=== PATIENT | male | born 1935 | race Caucasian/White ===

== ENCOUNTER 2020-01-31 13:32 | Emergency (ER) | payer OTHER ==
[2020-01-31] MEDS ORDERED: Sodium Chloride 0.9% 10 ML Syringe FLUSH PRN (13:54)
[2020-01-31] MEDS ORDERED: Sodium Chloride 0.9% 2.5 ML Syringe FLUSH PRN (13:54)
[2020-01-31] MEDS ORDERED: Labetalol 100 MG/20 ML MDV IVPUSH ONE (14:02)
--- NOTE | 2020-01-31 14:07 | EDM.PDOC ---
ED HPI GENERAL MEDICAL PROBLEM - General Chief Complaint: Cardiovascular Problem Stated Complaint: blood pressure high Time Seen by Provider: 01/31/20 13:53 Source of Information: Reports: Patient History Limitations: Reports: No Limitations - History of Present Illness INITIAL COMMENTS - FREE TEXT/NARRATIVE: 84M PMHx HTN, hyperthyroidism, NIDDM2 presents for high BP. Patient notes that when getting his influenza vaccination earlier this week, he was found to have hypertension to 170s/100s which is quite high for him. He was instructed to monitor at home and [facility]. This morning, BP was noted to be 250/120 prompting him to seek medical attention. He notes a diffuse/dull POWERS for the last few days but denies other symptoms. No CP/SOB. No dark urine or reduced urination. No edema. No changes in vision. No one-sided weakness, confusion, or slurred speech. - Related Data Allergies Allergy/AdvReac Type Severity Reaction Status Date / Time No Known Allergies Allergy Verified 01/31/20 13:48 Home Meds: Home Meds Gabapentin [Neurontin] 600 mg PO DAILY 01/31/20 [History] Simvastatin 80 mg PO BEDTIME 01/31/20 [History] lisinopriL [Lisinopril] 0.5 tab PO BEDTIME 01/31/20 [History] metFORMIN HCl [Metformin HCl] 500 mg PO DAILY 01/31/20 [History] methIMAzole [Methimazole] 5 mg PO DAILY 01/31/20 [History] Past Medical History Cardiovascular History: Reports: High Cholesterol, Hypertension Endocrine/Metabolic History: Reports: Diabetes, Type II, Hyperthyroidism Social & Family History - Tobacco Use Smoking Status *Q: Never Smoker - Caffeine Use Caffeine Use: Reports: None - Recreational Drug Use Recreational Drug Use: No ED ROS GENERAL - Review of Systems Review Of Systems: Comprehensive ROS is negative, except as noted in HPI. ED EXAM, GENERAL - Physical Exam Exam: See Below Exam Limited By: No Limitations General Appearance: Alert, WD/WN, No Apparent Distress Eye Exam: Bilateral Eye: EOMI, PERRL Ears: Normal External Exam Nose: Normal Inspection Throat/Mouth: Normal Inspection, Normal Voice, No Airway Compromise Head: Atraumatic, Normocephalic Respiratory/Chest: No Respiratory Distress, Lungs Clear, Normal Breath Sounds, No Accessory Muscle Use Cardiovascular: Normal Peripheral Pulses, Regular Rate, Rhythm, No Edema Extremities: Normal Inspection Neurological: Alert, Oriented, CN II-XII Intact, Normal Cognition, No Motor/Sensory Deficits Psychiatric: Normal Affect, Normal Mood Skin Exam: Warm, Dry, Intact, Normal Color EKG INTERPRETATION EKG Date: 01/31/20 Time: 14:17 Rhythm: NSR Rate (Beats/Min): 65 Guy: Normal P-Wave: Present QRS: Normal ST-T: Normal QT: Normal WI/PQ Interval: 156 Comparison: NA - No Prior EKG Course - Vital Signs Last Recorded V/S: Last Vital Signs Temp 97.4 F 01/31/20 13:42 Pulse 59 L 01/31/20 15:04 Resp 14 01/31/20 15:04 BP 167/76 H 01/31/20 15:04 Pulse Ox 95 01/31/20 15:04 - Orders/Labs/Meds Orders: Active Orders 24 hr Category Date Time Status Cardiac Monitoring [RC] . DIRECTED Care 01/31/20 13:54 Active EKG Documentation Completion [RC] STAT Care 01/31/20 13:54 Active Pulse Oximetry [RC] ASDIRECTED Care 01/31/20 13:54 Active B-TYPE NATRIURETIC PEPTIDE,BNP [CHEM] Stat Lab 01/31/20 14:21 Received Sodium Chloride 0.9% [Saline Flush] Med 01/31/20 13:54 Active 10 ml FLUSH ASDIRECTED PRN Sodium Chloride 0.9% [Saline Flush] Med 01/31/20 13:54 Active 2.5 ml FLUSH ASDIRECTED PRN Saline Lock Insert [OM.PC] Stat Oth 01/31/20 13:54 Ordered Medication Orders Sodium Chloride (Saline Flush) 10 ml FLUSH ASDIRECTED PRN PRN Reason: Keep Vein Open Last Admin: 01/31/20 14:11 Dose: 10 ml Documented by: POONAM Sodium Chloride (Saline Flush) 2.5 ml FLUSH ASDIRECTED PRN PRN Reason: Keep Vein Open Last Admin: 01/31/20 14:42 Dose: 2.5 ml Documented by: POONAM Labs: Laboratory Tests 01/31/20 01/31/20 01/31/20 Range/Units 14:21 14:21 14:21 WBC 8.70 (4.0-11.0) K/uL RBC 5.27 (4.50-5.90) M/uL Hgb 14.3 (13.0-17.0) g/dL Hct 45.8 (38.0-50.0) % MCV 86.9 (80.0-98.0) fL MCH 27.1 (27.0-32.0) pg MCHC 31.2 (31.0-37.0) g/dL RDW Std Deviation 47.0 (28.0-62.0) fl RDW Coeff of Hailee 15 (11.0-15.0) % Plt Count 411 H (150-400) K/uL MPV 10.10 (7.40-12.00) fL Neut % (Auto) 72.6 (48.0-80.0) % Lymph % (Auto) 15.3 L (16.0-40.0) % Rock % (Auto) 9.7 (0.0-15.0) % Eos % (Auto) 2.2 (0.0-7.0) % Baso % (Auto) 0.2 (0.0-1.5) % Neut # (Auto) 6.3 H (1.4-5.7) K/uL Lymph # (Auto) 1.3 (0.6-2.4) K/uL Rock # (Auto) 0.8 (0.0-0.8) K/uL Eos # (Auto) 0.2 (0.0-0.7) K/uL Baso # (Auto) 0.0 (0.0-0.1) K/uL Nucleated RBC % 0.0 /100WBC Nucleated RBCs # 0 K/uL Sodium 142 (136-148) mmol/L Potassium 3.6 (3.5-5.1) mmol/L Chloride 104 (98-107) mmol/L Carbon Dioxide 26.1 (21.0-32.0) mmol/L BUN 11 (7.0-18.0) mg/dL Creatinine 0.9 (0.8-1.3) mg/dL Est Cr Clr Drug Dosing 60.17 mL/min Estimated GFR (MDRD) > 60.0 ml/min Glucose 120 H (74-106) mg/dL Calcium 8.8 (8.5-10.1) mg/dL Magnesium 2.2 (1.8-2.4) mg/dL Total Bilirubin 0.5 (0.2-1.0) mg/dL AST 23 (15-37) IU/L ALT 32 (14-63) IU/L Alkaline Phosphatase 56 (46-116) U/L Troponin I < 0.050 (0.000-0.056) ng/mL Total Protein 7.3 (6.4-8.2) g/dL Albumin 3.7 (3.4-5.0) g/dL Globulin 3.6 (2.6-4.0) g/dL Albumin/Globulin Ratio 1.0 (0.9-1.6) TSH 3rd Generation 0.90 (0.36-3.74) uIU/mL Meds: Medications Generic Name Dose Route Start Last Admin Trade Name Freq PRN Reason Stop Dose Admin Sodium Chloride 10 ml 01/31/20 13:54 01/31/20 14:11 Saline Flush FLUSH 10 ml ASDIRECTED PRN Administration Keep Vein Open Sodium Chloride 2.5 ml 01/31/20 13:54 01/31/20 14:42 Saline Flush FLUSH 2.5 ml ASDIRECTED PRN Administration Keep Vein Open Discontinued Medications Generic Name Dose Route Start Last Admin Trade Name Freq PRN Reason Stop Dose Admin Labetalol HCl 20 mg 01/31/20 14:02 01/31/20 14:21 Normodyne IVPUSH 01/31/20 14:03 20 mg ONETIME ONE Administration Protocol - Re-Assessments/Exams Free Text/Narrative Re-Assessment/Exam: 01/31/20 14:18 Patient presents with very high blood pressrue. Mild POWERS but no CP or SOB. Will get labs, EKG, head CT to r/o signs of end organ damage 2/2 hypertension. Will give labetalol 20mg and reassess. Patient is on lisinopril half tab daily and is compliant with it apparently. 01/31/20 15:19 Labs and imaging unremarkable. Will recommend patient to take full dose of lisinopril rather than half dose, monitor BP, and f[facility] with [facility] early next week. Return for POWERS, CP, difficulty breathing. Departure - Departure Time of Disposition: 15:20 Disposition: Home, Self-Care 01 Condition: Good Clinical Impression: Hypertension Qualifiers: Hypertension type: essential hypertension Qualified Code(s): I10 - Essential (primary) hypertension Referrals: PCP,None [Primary Care Provider] - Forms: ED Department Discharge Additional Instructions: The following information is given to patients seen in the emergency department who are being discharged to home. This information is to outline your options for follow-up care. We provide all patients seen in our emergency department with a follow-up referral. The need for follow-up, as well as the timing and circumstances, are variable depending upon the specifics of your emergency department visit. If you don't have a primary care physician on staff, we will provide you with a referral. We always advise you to contact your personal physician following an emergency department visit to inform them of the circumstance of the visit and for follow-up with them and/or the need for any referrals to a consulting specialist. The emergency department will also refer you to a specialist when appropriate. This referral assures that you have the opportunity for follow-up care with a specialist. All of these measure are taken in an effort to provide you with optimal care, which includes your follow-up. Under all circumstances we always encourage you to contact your private physician who remains a resource for coordinating your care. When calling for follow-up care, please make the office aware that this follow-up is from your recent emergency room visit. If for any reason you are refused follow-up, please contact the [facility] Emergency Department at and asked to speak to the emergency department charge nurse. Please follow up with your primary care physician. If you do not have a primary care physician, see below: [facility] [address] [place] [id number] [facility] [address] [place] [id number] Sepsis Event Note (ED) - Evaluation Sepsis Screening Result: No Definite Risk - Focused Exam Vital Signs: Vital Signs Temp Pulse Resp BP Pulse Ox 01/31/20 15:04 59 L 14 167/76 H 95 01/31/20 14:45 69 18 177/83 H 94 L 01/31/20 14:26 220/90 H 01/31/20 14:10 70 14 209/95 H 96 01/31/20 13:42 97.4 F 73 18 251/112 H 96 - My Orders Last 24 Hours: My Active Orders 01/31/20 13:54 Cardiac Monitoring [RC] . DIRECTED EKG Documentation Completion [RC] STAT Pulse Oximetry [RC] ASDIRECTED Sodium Chloride 0.9% [Saline Flush] 10 ml FLUSH ASDIRECTED PRN Sodium Chloride 0.9% [Saline Flush] 2.5 ml FLUSH ASDIRECTED PRN Saline Lock Insert [OM.PC] Stat 01/31/20 14:21 B-TYPE NATRIURETIC PEPTIDE,BNP [CHEM] Stat - Assessment/Plan Last 24 Hours: My Active Orders 01/31/20 13:54 Cardiac Monitoring [RC] . DIRECTED EKG Documentation Completion [RC] STAT Pulse Oximetry [RC] ASDIRECTED Sodium Chloride 0.9% [Saline Flush] 10 ml FLUSH ASDIRECTED PRN Sodium Chloride 0.9% [Saline Flush] 2.5 ml FLUSH ASDIRECTED PRN Saline Lock Insert [OM.PC] Stat 01/31/20 14:21 B-TYPE NATRIURETIC PEPTIDE,BNP [CHEM] Stat
[2020-01-31 15:10] LABS: BLOOD UREA NITROGEN,BUN 11 mg/dL (7.0-18.0); CARBON DIOXIDE,CO2 26.1 mmol/L (21.0-32.0); CHLORIDE,CL 104 mmol/L (98-107); GLUCOSE RANDOM 120 mg/dL (74-106); POTASSIUM,K 3.6 mmol/L (3.5-5.1); SODIUM,NA 142 mmol/L (136-148)
--- NOTE | 2020-01-31 15:10 | CT ---
INDICATION: Hypertension. TECHNIQUE: Scanning of the head was performed without IV contrast material. Coronal and sagittal reconstructions were obtained. COMPARISON: None. FINDINGS: No intracranial hemorrhage is demonstrated. No positive mass effect is evident. Differentiation between the syed matter and white matter is preserved. There is nonspecific decreased attenuation in the cerebral white matter which is most likely due to aging/chronic microvascular ischemic disease. The ventricles and other subarachnoid spaces are within normal limits for the patient`s age. No calvarial abnormality is evident. The visualized paranasal and mastoid sinuses are clear. IMPRESSION: 1. No acute abnormality demonstrated. 2. Nonspecific cerebral white matter disease, most likely due to aging/chronic microvascular ischemic disease. Please note that all CT scans at this facility use dose modulation, iterative reconstruction, and/or weight-based dosing when appropriate to reduce radiation dose to as low as reasonably achievable. Dictated by Monroe Tenorio MD @ Jan 31 2020 3:06PM Signed by Dr. Monroe Tenorio @ Jan 31 2020 3:09PM
== END 2020-01-31 15:29 | disposition home or self-care (01) ==
LOC: MW.ED 13:32
DX: I10 Essential (primary) hypertension (principal); E78.00 Pure hypercholesterolemia, unspecified; E11.9 Type 2 diabetes mellitus without complications; Z79.84 Long term (current) use of oral hypoglycemic drugs; Z79.899 Other long term (current) drug therapy
CPT/HCPCS: 36415; 70450; 80053; 83735; 83880; 84443; 84484; 85025; 93005; 96374; 99284; J3490; 93010; 99283

== ENCOUNTER 2020-02-02 17:00 | Emergency (ER) | payer OTHER ==
[2020-02-02] MEDS ORDERED: Hydrochlorothiazide 12.5 MG Cap PO STA (17:45)
--- NOTE | 2020-02-02 17:49 | EDM.PDOC ---
ED HPI GENERAL MEDICAL PROBLEM - General Chief Complaint: Cardiovascular Problem Stated Complaint: High Blood Pressure Time Seen by Provider: 02/02/20 17:14 Source of Information: Reports: Patient History Limitations: Reports: No Limitations - History of Present Illness INITIAL COMMENTS - FREE TEXT/NARRATIVE: HISTORY AND PHYSICAL: History of present illness: Patient is an 84-year-old male who presents to the emergency room with complaints of hypertension. He has a history of hypertension and does take lisinopril for this. Last week while getting a flu shot he was told that his blood pressure was elevated and she should continue to monitor it. He continued to check his blood pressure 1-2 times daily, was seen in the emergency room on 01/31/2020 did have a follow-up work-up. At that time he had been taking a half tab of his lisinopril and was directed to take a full tab until he could follow- up with his primary care provider the following week which he already had arranged. Patient states this is day #2 of taking the full tab of lisinopril and still has not seen a drop in his blood pressure and decided to come to the emergency room for reevaluation. Initially he told the triage nurse he had a mild dull frontal headache, when I had asked him he denies. Patient denies any fever, chills, change in vision, syncope or near syncope. Denies any chest pain, back pain, shortness of breath or cough. Denies any abdominal pain, nausea, vomiting, diarrhea, constipation or dysuria. Has not noted any blood in urine or stool. Patient has been eating and drinking appropriately. Review of systems: As per history of present illness and below otherwise all systems reviewed and negative. Past medical history: As per history of present illness and as reviewed below otherwise noncontributory. Surgical history: As per history of present illness and as reviewed below otherwise noncontributory. Social history: See social history for further information Family history: As per history of present illness and as reviewed below otherwise noncontributory. Physical exam: General: Well developed and well nourished. Alert and orientated x 3. Nontoxic in appearance and in no acute distress. Vital signs are stable and have been reviewed by me. Nursing notes were reviewed. HEENT: Atraumatic, normocephalic, pupils equal and reactive bilaterally, negative for conjunctival pallor or scleral icterus, mucous membranes moist, TMs normal bilaterally, throat clear, neck supple, nontender, trachea midline. No drooling or trismus noted. No meningeal signs. No hot potato voice noted. Lungs: Clear to auscultation, breath sounds equal bilaterally, chest nontender. Normal work of breathing, no accessory muscles used. Heart: S1S2, regular rate and rhythm without overt murmur Abdomen: Soft, nondistended, nontender. Negative for masses or hepatosplenomegaly. Negative for costovertebral tenderness. Skin: Intact, warm, dry. No lesions or rashes noted. Hematologic: No petechiae or purpra. Mucosa appropriate color and normal nail bed color and refill. Extremities: Atraumatic, moves all extremities per self without difficulty or deficits, negative for cords or calf pain. Neurovascular unremarkable. Neuro: Awake, alert, oriented. Cranial nerves II through XII unremarkable. Cerebellum unremarkable. Motor and sensory unremarkable throughout. Exam nonfocal. Psychiatric: Mood and affect are appropriate. Normal thought process. Answering questions appropriately. Notes: Patient reports he is asymptomatic and has no current complaints other than visually seeing his blood pressure was elevated. He did have a CBC, CMP, EKG, head CT, TSH all of which were within normal limits. I will repeat some basic lab work along with an EKG and add oral HCTZ to his regiment (Norvasc interacts with Simvastatin). Patient continues to be asymptomatic while here in the emergency room. He states he [facility] appointment [facility] on Tuesday. As he has had reassuring labs today and on 01/31/2020 I do not feel he needs further work-up or evaluation. I have spoken with the patient/caregiver and discussed today's findings, in addition to providing specific details for plan of care. Reassessment at the time of disposition demonstrates that the patient is in no acute distress. The patient has remained stable throughout the entire ED visit and is without objective evidence for acute process requiring urgent intervention or hospitalization. The patient is stable for discharge, counseling was provided and we discussed in great detail signs and symptoms that would prompt them to return to the Emergency Department. Medication, follow up and supportive care measures were reviewed and discussed. Voices understanding and is agreeable to plan of care. Denies any further questions or concerns at this time. Diagnostics: CBC, CMP, Troponin, EKG Therapeutics: HCTZ, Clonidine Prescription: HCTZ Impression: Uncontrolled hypertension Plan: 1. Today your lab work and diagnostics are unremarkable. You likely need your blood pressure medications adjusted, but this needs to be done by your primary care provider. 2. Continue to log your blood pressures, bring it to your appointment on Tuesday. 3. We encourage you to follow up with your primary care provider and/or recommended specialist in the next few days for re-evaluation and further care/management. If your symptoms should worsen, new symptoms develop or any of the signs and symptoms we discussed should arise please return to the emergency room or call 911 (if needed). Definitive disposition and diagnosis as appropriate pending reevaluation and review of above. headache Pain Score (Numeric/FACES): 2 - Related Data Allergies Allergy/AdvReac Type Severity Reaction Status Date / Time No Known Allergies Allergy Verified 02/02/20 17:31 Home Meds: Home Meds Gabapentin [Neurontin] 600 mg PO DAILY 01/31/20 [History] Simvastatin 80 mg PO BEDTIME 01/31/20 [History] lisinopriL [Lisinopril] 0.5 tab PO BEDTIME 01/31/20 [History] metFORMIN HCl [Metformin HCl] 500 mg PO DAILY 01/31/20 [History] methIMAzole [Methimazole] 5 mg PO DAILY 01/31/20 [History] Past Medical History Cardiovascular History: Reports: High Cholesterol, Hypertension Endocrine/Metabolic History: Reports: Diabetes, Type II, Hyperthyroidism - Infectious Disease History Infectious Disease History: Reports: Chicken Pox Social & Family History - Family History Family Medical History: Noncontributory - Tobacco Use Smoking Status *Q: Former Smoker Used Tobacco, but Quit: Yes Month/Year Tobacco Last Used: 1969 - Caffeine Use Caffeine Use: Reports: None - Recreational Drug Use Recreational Drug Use: No ED ROS GENERAL - Review of Systems Review Of Systems: Comprehensive ROS is negative, except as noted in HPI. ED EXAM, GENERAL - Physical Exam Exam: See Below (See dictation) Course - Vital Signs Last Recorded V/S: Last Vital Signs Temp 97.8 F 02/02/20 17:31 Pulse 63 02/02/20 19:00 Resp 18 02/02/20 19:00 BP 233/101 H 02/02/20 19:19 Pulse Ox 96 02/02/20 19:00 - Orders/Labs/Meds Orders: Active Orders 24 hr Category Date Time Status EKG 12 Lead [EKG Documentation Completion] [RC] STAT Care 02/02/20 17:43 Active Labs: Laboratory Tests 02/02/20 02/02/20 Range/Units 17:55 17:55 WBC 8.69 (4.0-11.0) K/uL RBC 4.91 (4.50-5.90) M/uL Hgb 13.3 (13.0-17.0) g/dL Hct 43.0 (38.0-50.0) % MCV 87.6 (80.0-98.0) fL MCH 27.1 (27.0-32.0) pg MCHC 30.9 L (31.0-37.0) g/dL RDW Std Deviation 47.2 (28.0-62.0) fl RDW Coeff of Hailee 15 (11.0-15.0) % Plt Count 398 (150-400) K/uL MPV 10.00 (7.40-12.00) fL Neut % (Auto) 65.5 (48.0-80.0) % Lymph % (Auto) 22.4 (16.0-40.0) % Wright % (Auto) 8.1 (0.0-15.0) % Eos % (Auto) 3.7 (0.0-7.0) % Baso % (Auto) 0.3 (0.0-1.5) % Neut # (Auto) 5.7 (1.4-5.7) K/uL Lymph # (Auto) 2.0 (0.6-2.4) K/uL Wright # (Auto) 0.7 (0.0-0.8) K/uL Eos # (Auto) 0.3 (0.0-0.7) K/uL Baso # (Auto) 0.0 (0.0-0.1) K/uL Nucleated RBC % 0.0 /100WBC Nucleated RBCs # 0 K/uL Sodium 140 (136-148) mmol/L Potassium 3.5 (3.5-5.1) mmol/L Chloride 105 (98-107) mmol/L Carbon Dioxide 28.3 (21.0-32.0) mmol/L BUN 12 (7.0-18.0) mg/dL Creatinine 0.9 (0.8-1.3) mg/dL Est Cr Clr Drug Dosing 60.17 mL/min Estimated GFR (MDRD) > 60.0 ml/min Glucose 99 (74-106) mg/dL Calcium 8.3 L (8.5-10.1) mg/dL Total Bilirubin 0.4 (0.2-1.0) mg/dL AST 27 (15-37) IU/L ALT 47 (14-63) IU/L Alkaline Phosphatase 54 (46-116) U/L Troponin I < 0.050 (0.000-0.056) ng/mL Total Protein 7.2 (6.4-8.2) g/dL Albumin 3.6 (3.4-5.0) g/dL Globulin 3.6 (2.6-4.0) g/dL Albumin/Globulin Ratio 1.0 (0.9-1.6) Meds: Medications Discontinued Medications Generic Name Dose Route Start Last Admin Trade Name Freq PRN Reason Stop Dose Admin Clonidine HCl 0.1 mg 02/02/20 18:39 02/02/20 19:19 Catapres PO 02/02/20 18:40 0.1 mg ONETIME ONE Administration Hydrochlorothiazide 12.5 mg 02/02/20 17:45 02/02/20 17:58 Hydrochlorothiazide PO 02/02/20 17:46 12.5 mg NOW STA Administration Departure - Departure Time of Disposition: 19:54 Disposition: Home, Self-Care 01 Clinical Impression: Uncontrolled hypertension Instructions: Hypertension, Adult, [id number] Referrals: [facility] [[facility]ing Only Provider] - Forms: ED Department Discharge Additional Instructions: The following information is given to patients seen in the emergency department who are being discharged to home. This information is to outline your options for follow-up care. We provide all patients seen in our emergency department with a follow-up referral. The need for follow-up, as well as the timing and circumstances, are variable depending upon the specifics of your emergency department visit. If you don't have a primary care physician on staff, we will provide you with a referral. We always advise you to contact your personal physician following an emergency department visit to inform them of the circumstance of the visit and for follow-up with them and/or the need for any referrals to a consulting specialist. The emergency department will also refer you to a specialist when appropriate. This referral assures that you have the opportunity for follow-up care with a specialist. All of these measure are taken in an effort to provide you with optimal care, which includes your follow-up. Under all circumstances we always encourage you to contact your private physician who remains a resource for coordinating your care. When calling for follow-up care, please make the office aware that this follow-up is from your recent emergency room visit. If for any reason you are refused follow-up, please contact the [facility] Emergency Department at and asked to speak to the emergency department charge nurse. [facility] [address] [place] [id number] [facility] [address] [place] [phone] Thank you for choosing the [facility] emergency department in [place] for your medical needs today. It was a pleasure caring for you. Today you were seen in the emergency department for elevated blood pressure readings. 1. Today your lab work and diagnostics are unremarkable. You likely need your blood pressure medications adjusted, but this needs to be done by your primary care provider (as they manage all your chronic health issues). 2. Continue to log your blood pressures, bring it to your appointment on Tuesday. 3. We encourage you to follow up with your primary care provider and/or recommended specialist in the next few days for re-evaluation and further care/management. If your symptoms should worsen, new symptoms develop or any of the signs and symptoms we discussed should arise please return to the emergency room or call 911 (if needed). Sepsis Event Note (ED) - Evaluation Sepsis Screening Result: No Definite Risk - Focused Exam Vital Signs: Vital Signs Temp Pulse Resp BP BP Pulse Ox 02/02/20 19:19 233/101 H 02/02/20 19:00 63 18 233/101 H 96 02/02/20 18:30 64 18 235/98 H 96 02/02/20 18:00 60 18 239/97 H 97 02/02/20 17:31 97.8 F 69 17 235/108 H 95 - My Orders Last 24 Hours: My Active Orders 02/02/20 17:43 EKG 12 Lead [EKG Documentation Completion] [RC] STAT - Assessment/Plan Last 24 Hours: My Active Orders 02/02/20 17:43 EKG 12 Lead [EKG Documentation Completion] [RC] STAT
[2020-02-02 18:34] LABS: BLOOD UREA NITROGEN,BUN 12 mg/dL (7.0-18.0); CARBON DIOXIDE,CO2 28.3 mmol/L (21.0-32.0); CHLORIDE,CL 105 mmol/L (98-107); GLUCOSE RANDOM 99 mg/dL (74-106); POTASSIUM,K 3.5 mmol/L (3.5-5.1); SODIUM,NA 140 mmol/L (136-148)
[2020-02-02] MEDS ORDERED: cloNIDine 0.1 MG Tab PO ONE (18:39)
--- NOTE | 2020-02-02 18:43 | PCM.SN.2 ---
EKG INTERPRETATION EKG Date: 02/02/20 Time: 17:50 Rhythm: NSR Rate (Beats/Min): 66 [place]: Normal P-Wave: Present QRS: Normal ST-T: Normal QT: Normal Comparison: No Change
== END 2020-02-02 20:02 | disposition home or self-care (01) ==
LOC: MW.ED 17:00
DX: I10 Essential (primary) hypertension (principal); E78.00 Pure hypercholesterolemia, unspecified; E11.9 Type 2 diabetes mellitus without complications; Z87.891 Personal history of nicotine dependence; Z79.84 Long term (current) use of oral hypoglycemic drugs; Z79.899 Other long term (current) drug therapy
CPT/HCPCS: 36415; 80053; 84484; 85025; 93005; 99283; A9270; 93010; 99282